=== PATIENT | female | born 2000 | race Caucasian/White ===

== ENCOUNTER 2025-04-30 09:23 | Emergency (ER) | payer MEDICAID ==
[~2025-04-30] VITALS: Ht 167.6 cm; Wt 93.8 kg
[2025-04-30 10:37] LABS: MEAN PLATELET VOLUME 9.6 FL (7.4-10.4); RED CELL DISTRIBUTION WIDTH 14.5 % (11.5-14.5)
[2025-04-30 10:39] LABS: URINE HCG POSITIVE (NEG)
[2025-04-30 10:42] LABS: LEUKOCYTE ESTERASE ,URINE LARGE (Neg); NITRITES, URINE POSITIVE (Neg); OCCULT BLOOD,URINE NEGATIVE (Neg)
[2025-04-30 10:44] LABS: UA COLLECTION TYPE CLN CATCH MIDSTREAM
[2025-04-30 10:48] LABS: CREATININE 0.56 MG/DL (0.40-0.90); TOTAL CARBON DIOXIDE 24.9 MMOL/L (24-32); eCRCL 144 ML/MIN; eGFR > 90 ML/MIN
[2025-04-30 10:59] LABS: AMORPHOUS PHOSPHATES 1+; SQUAMOUS EPITHELIAL CELL,UR FEW /LPF (FEW)
--- NOTE | 2025-04-30 11:49 | Physician Documentation ---
History of Present Illness Chief Complaint: Abdominal Pain Stated Complaint: ABD PAIN 12 WEEKS PREG Time Seen by MD: 11:48 OK to notify your PCP?: Yes Source: patient, family, RN/MD, RN notes reviewed Mode of Arrival: POV Exam Limitations: no limitations HPI This is a 24 years old female with 12 weeks of to the ED with concern of pain in the right lower quadrant. She states that she has gradual onset, nonradiating, waxing and waning, stabbing type of right lower quadrant pain. Patient denies any fever, chills, dysuria, vomiting, diarrhea, constipation, acid reflux, swelling of legs, shortness of breath, chest pain. Medication Reconciliation Allergies: Coded Allergies: Penicillins (Verified Allergy, Severe, 04/30/25) Scheduled Cephalexin*Monohydrate* (Keflex*), 1 CAP PO Q12H Past Medical History Past Medical History: No Pertinent History Alcohol Use: None Review of Systems All Other Systems at this time: Reviewed and Negative ROS Reviewed and negative except positive findings as described in HPI. Physical Exam Vital Signs: RN Vital Signs have been reviewed: Yes, Temperature: 97.9, Source: Oral, Heart Rate: 76, Respiratory Rate: 18, BP: 117/64, Pulse Oximetry: 100, Weight: 93.800 Oxygen Flow Rate: 0 Physical Exam Awake , alert and oriented to time,place, person, not in distress HEENT: Atraumatic, normocephalic, PERRLA, EOMI, anicteric sclera ; pink conjunctiva, moist mucos membranes Neck: Trachea midline. Supple, normal range of motion, no JVD, no lymphadenopathy Chest and Respiratory: Equal breath sounds bilaterally, no tachypnea, wheezing, ronchi,rubs .Chest wall is symmetric and without deformity. Cardiac: S1, S2 heard,Regular rate and rhythm, no murmurs ,no gallops, no rubs. Abdomen: Soft, No tenderness, No guarding or rigidity, Hawkins's sign negative. normal bowel sounds x4 quadrant, no organomegaly MSK: Range of motion of all extremities are normal. There is no joint pain or joint swelling or joint erythema. There is no muscle pain or tenderness or swelling. Extremities: warm, well-perfused, No cyanosis, clubbing, 2+ pulses felt Neurological: Motor system and Sensory system:normal Skin: Warm and dry Psychiatry: Affect and mood are normal Progress Results/Orders Reviewed/noted all lab results: Yes Results/Orders Orders - MATTHEW BUSBY MD Cult Urine + [address] (04/30/25 10:59) Completed Orders - MATTHEW BUSBY MD Hcg, Ur Ql (04/30/25 09:50) Cbc/Diff (04/30/25 09:50) Lipase (04/30/25 09:50) CMP (04/30/25 09:50) Ua W/Microscopic, Cult If Ind (04/30/25 09:50) Vital Signs 04/30/25 09:44 Temp 97.9 Pulse 76 Resp 18 B/P (MAP) 117/64 Pulse Ox 100 O2 Flow Rate 0 Laboratory Tests Test 04/30/25 09:50 04/30/25 10:20 Urine Specimen Description Cln catch midstream Urine Color Yellow Urine Clarity Cloudy Urine pH 7.0 Urine Specific [place] 1.025 Urine Protein Trace Urine Glucose (UA) Negative Urine Ketones Trace H Urine Occult Blood Negative Urine Nitrite Positive H Urine Bilirubin Negative Urine Urobilinogen 0.2 Urine Leukocyte Esterase Large H Urine RBC 0-2 Urine WBC 50-100 H Urine Squamous Epithelial Cells Few Urine Transitional Epithelial Cells Few Urine Amorphous Phosphates 1+ Urine Bacteria 4+ Urine Culture Indicated Indicated Volume Urine Centrifuged 10 ml Urine HCG, Qualitative Positive Urine Comment White Blood Count 9.4 Red Blood Count 4.49 Hemoglobin 13.1 Hematocrit 38.8 Mean Corpuscular Volume 86.4 Mean Corpuscular Hemoglobin 29.1 Mean Corpuscular Hemoglobin Concent 33.7 Red Cell Distribution Width 14.5 Platelet Count 277 Mean Platelet Volume 9.6 Neutrophils (%) (Auto) 67.7 Lymphocytes (%) (Auto) 24.7 Monocytes (%) (Auto) 6.8 Eosinophils (%) (Auto) 0.5 Basophils (%) (Auto) 0.3 Neutrophils # (Auto) 6.4 Lymphocytes # (Auto) 2.3 Monocytes # (Auto) 0.6 Eosinophils # (Auto) 0.0 Basophils # (Auto) 0.0 CBC Comment Sodium Level 136 Potassium Level 3.7 Chloride Level 103 Carbon Dioxide Level 24.9 Anion Gap 8 Blood Urea Nitrogen 8 Creatinine 0.56 Estimated GFR/1.73 m2 > 90 BUN/Creatinine Ratio 14.3 Glucose Level 87 Calcium Level 9.3 Total Bilirubin 0.3 Aspartate Amino Transf (AST/SGOT) 29 Alanine Aminotransferase (ALT/SGPT) 43 Alkaline Phosphatase 65 Total Protein 8.1 Albumin 3.8 Globulin 4.3 Albumin/Globulin Ratio 0.9 L Lipase 37 HCG Beta Subunit [id number] Chemistry Comments Re-Evaluation Re-Evaluation : Re-Evaluation: Improved Progress Patient was seen and examined, case reviewed, management reviewed and agreement with the resident. Mart SALCEDO Patient is discussed high-risk of laboratory work did not show significant abnormalities. CBC did not have a leukocytosis with normal WBC at 9.4 chemistry was within normal limits lactic acid [place] [id number]. Urinalysis did show 50-100 WBCs. Patient received a L bolus as well as Rocephin and discharged home with antibiotics. Patient was encouraged to have close follow up since there is a high-risk of complications. EKG/XRAY/CT/US/VASC/MRI Ultrasound : Interpreted By: radiologist Ultrasound of: obstetric Impression EXAM: US US OB HISTORY: Abdomiunal pain, right lower quadrant with cramping, 12 weeks TECHNIQUE: Multiple real-time grayscale images of the gravid uterus with duplex Doppler color flow and M-mode spectral analysis. COMPARISON: None FINDINGS: There is a live intrauterine corresponding to 11 weeks 5 days based on measurement of crown-rump length which is 5.1 cm. There is trace subchorionic hemorrhage The heart rate is 169 beats per minute Estimated date of delivery 11/14/2025 The uterus measures 9.7 cm IMPRESSION: 1. Live intrauterine corresponding to 11 weeks 5 days. 2. Estimated date of delivery 11/14/2025 Electronically Signed by:LAVERNE YEPEZ MD Date & Time: 04/30/25 1221 Medical Decision Making Additional information obtaine: N/A Findings This is a 24 years old female with 12 weeks of to the ED with concern of pain in the right lower quadrant. She states that she has gradual onset, nonradiating, waxing and waning, stabbing type of right lower quadrant pain. Urine analysis is suggestive of urinary tract infection. CBC and CMP are normal, vitals are stable. Ordered IV normal saline bolus 1 L and 1 g of IV Rocephin. ultrasound OB shows live intrauterine . plan: Oral Cephalexin twice daily for 7 days. Differential Dx:Considerations: Appendicitis, Cholelithasis, Constipation, Pancreatitis, PID, Urinary tract infection, Urolithiasis Departure Disposition: HOME / SELF CARE / HOMELESS Impression: Primary Impression: UTI (urinary tract infection) Qualified Codes: N30.00 - Acute cystitis without hematuria Condition: Stable Discharge Instructions: and Urinary Tract Infection Additional Instructions: Follow up your OB doctor return if you have high fevers Departure Forms: Excuse form Work or School Excused From: Work Excuse beginning now through the following date: May 02, 2025 Referrals: NO PRIMARY CARE PROVIDER (PCP) Prescriptions Cephalexin*Monohydrate* (Keflex*) 500 Mg Capsule 1 CAP PO Q12H for 10 Days, #20 CAP Prov: MATTHEW BUSBY MD 04/30/25 Education Educated: Patient, Family Educated regarding: diagnosis, treatment, need for follow up, other Signature Scribe Signature: No Scribe Attestation: Resident attestation The above note has been reviewed and supervised by a senior resident PGY2/PGY3 Patient was seen, examined and discussed with the attending physician German Su MD Internal Medicine Resident, PGY 1 Patient was seen and examined, case reviewed, management reviewed and agreement with the resident. MATTHEW Shine MD, MD Apr 30, 2025 11:49 KEVIN SU, [place] Apr 30, 2025 12:15 SAM DAVIS Apr 30, 2025 12:49 YAHIR BUSBY Apr 30, 2025 14:50
--- NOTE | 2025-04-30 12:23 | RADIOLOGY REPORT ---
EXAM: US US OB HISTORY: Abdomiunal pain, right lower quadrant with cramping, 12 weeks TECHNIQUE: Multiple real-time grayscale images of the gravid uterus with duplex Doppler color flow and M-mode spectral analysis. COMPARISON: None FINDINGS: There is a live intrauterine corresponding to 11 weeks 5 days based on measurement of crown-rump length which is 5.1 cm. There is trace subchorionic hemorrhage The heart rate is 169 beats per minute Estimated date of delivery 11/14/2025 The uterus measures 9.7 cm IMPRESSION: 1. Live intrauterine corresponding to 11 weeks 5 days. 2. Estimated date of delivery 11/14/2025
[2025-04-30] MEDS: normal saline 1000ml 1,000 ML IV ONE (13:07)
[2025-04-30] MEDS: CefTRIAXone/D5W-Rocephin 1gm 50 ML IV ONE (13:08)
[2025-04-30 13:10] VITALS: TEMP 97.9
[2025-04-30] MEDS ORDERED: CEPH-585 PO (14:46)
[2025-04-30 15:11] VITALS: BP 100/53; PULSE 93; RESP 17; O2SAT 99
== END 2025-04-30 15:14 | disposition home or self-care (01) ==
LOC: ER 09:24
DX: O23.41 Unspecified infection of urinary tract in pregnancy, first trimester (principal); N39.0 Urinary tract infection, site not specified; Z88.0 Allergy status to penicillin; Z3A.12 12 weeks gestation of pregnancy
CPT/HCPCS: 36415; 76801; 80053; 81001; 81025; 83605; 83690; 84702; 85025; 87040; 87088; 93976; 96365; 99285; J0696; J7030; 87186